=== PATIENT | male | born 2000 | race Hispanic/Latino ===

== ENCOUNTER 2019-08-28 10:39 | Emergency (ER) | payer OTHER, SELFPAY ==
--- NOTE | 2019-08-28 11:49 | ER ---
Nurse's Notes [facility] Name: Roman Cagle Age: 18 yrs Sex: Male : 2000 Arrival Date: 08/28/2019 Time: 10:45 Bed 6 Private MD: Diagnosis: Acute tonsillitis Presentation: 08/27 11:02 Chief complaint: Patient states: itchy throat and fever that began last night. Motrin ss last taken at 0300. Coronavirus screen: Surgical mask placed on patient. Patient moved to private room, placed in contact and droplet isolation with eye protection until further assessment. Patient denies a cough. Patient denies shortness of breath or difficulty breathing. Patient reports a measured and/or subjective temperature greater than 100.4F. Patient denies travel on a cruise ship or to a country the [facility] currently lists as an affected area. Patient denies contact with known and/or suspected case of COVID-19. Ebola Screen: Patient denies exposure to infectious person. Patient denies travel to an Ebola-affected area in the 21 days before illness onset. Initial Sepsis Screen: Does the patient meet any 2 criteria? No. Patient's initial sepsis screen is negative. Does the patient have a suspected source of infection?. Risk Assessment: Do you want to hurt yourself or someone else? Patient reports no desire to harm self or others. Onset of symptoms was August 27, 2019. 11:02 Method Of Arrival: Ambulatory 11:02 Acuity: PATIENCE 4 ss Historical: - Allergies: 11:05 No Known Allergies; ss - Home Meds: 11:05 None [Active]; ss - PMHx: 11:05 None; ss - PSHx: 11:05 None; ss - Immunization history:: Adult Immunizations up to date. - Social history:: Smoking status: Patient denies any tobacco usage or history of. Screenin:30 Abuse screen: Denies threats or abuse. Denies injuries from another. Nutritional ph screening: No deficits noted. Tuberculosis screening: No symptoms or risk factors identified. Fall Risk None identified. Assessment: 11:29 General: Appears in no apparent distress. comfortable, Behavior is calm, cooperative, ph appropriate for age, Reports fever for 12-24 hours. Pain: Complains of pain in throat. Neuro: Level of Consciousness is awake, alert, obeys commands, Oriented to person, place, time, situation. Cardiovascular: Capillary refill < 3 seconds in bilateral fingers. Respiratory: Airway is patent Respiratory effort is even, unlabored, Respiratory pattern is regular, symmetrical, Denies cough, shortness of breath. GI: No signs and/or symptoms were reported involving the gastrointestinal system. EENT: Throat is reddened Reports pain when swallowing. Derm: Skin is intact, is healthy with good turgor, Skin is pink, warm \T\ dry. Musculoskeletal: Circulation, motion, and sensation intact. Range of motion: intact in all extremities. Vital Signs: 11:02 BP 121 / 63; Pulse 86; Resp 15; Temp 99.3(O); Pulse Ox 98% on R/A; Weight 58.97 kg; ss Height 5 ft. 8 in. (172.72 cm); Pain 0/10; 12:30 BP 114 / 78; Pulse 81; Resp 18; Temp 98.7; Pulse Ox 99% on R/A; ph 11:02 Body Mass Index 19.77 (58.97 kg, 172.72 cm) ED Course: 10:45 Patient arrived in ED. fj1 10:51 Ramon Alba PA is PHCP. jr8 10:51 Hamilton Lei MD is Attending Physician. jr8 10:56 Kiana Markham RN is Primary Nurse. ph 11:04 Triage completed. 11:05 Arm band placed on right wrist. 11:30 Patient has correct armband on for positive identification. Bed in low position. Call ph light in reach. Side rails up X 1. Pulse ox on. NIBP on. Door closed. Noise minimized. Warm blanket given. 11:31 Strep swab sent to lab. 5 12:35 No provider procedures requiring assistance completed. Patient did not have IV access ph during this emergency room visit. Administered Medications: No medications were administered Outcome: 11:48 Discharge ordered by . mitul 12:35 Patient left the ED. ph 12:35 Discharged to home ambulatory. ph 12:35 Condition: good 12:35 Discharge instructions given to patient, Instructed on discharge instructions, follow up and referral plans. medication usage, Demonstrated understanding of instructions, follow-up care, medications, Prescriptions given X 2. Signatures: Cheli Corrigan RN RN Ramon Alba PA PA jr8 Kiana Markham, RN RN ph Gregory, Crystal 5 Candido Bhakta fj1
--- NOTE | 2019-08-28 11:49 | EDPHYS ---
Physician Documentation [facility] Name: Roman Cagle Age: 18 yrs Sex: Male : 2000 Arrival Date: 08/28/2019 Time: 10:45 Bed 6 Private MD: ED Physician Hamilton Lei HPI: 08/27 11:14 This 18 yrs old Male presents to ER via Ambulatory with complaints of Sore jr8 Throat, Cold Symptoms. 11:14 The patient presents with sore throat. The patient describes throat pain as raw. Onset: jr8 The symptoms/episode began/occurred acutely, yesterday. Severity of symptoms: At their worst the symptoms were mild, in the emergency department the symptoms are unchanged. Modifying factors: The symptoms are alleviated by nothing, the symptoms are aggravated by nothing. Associated signs and symptoms: Pertinent positives: fever. The patient has not experienced similar symptoms in the past. The patient has not recently seen a physician. Historical: - Allergies: 11:05 No Known Allergies; ss - Home Meds: 11:05 None [Active]; ss - PMHx: 11:05 None; ss - PSHx: 11:05 None; ss - Immunization history:: Adult Immunizations up to date. - Social history:: Smoking status: Patient denies any tobacco usage or history of. ROS: 11:14 Eyes: Negative for injury, pain, redness, and discharge, Neck: Negative for injury, jr8 pain, and swelling, Cardiovascular: Negative for chest pain, palpitations, and edema, Respiratory: Negative for shortness of breath, cough, wheezing, and pleuritic chest pain, Abdomen/GI: Negative for abdominal pain, nausea, vomiting, diarrhea, and constipation, Back: Negative for injury and pain, MS/Extremity: Negative for injury and deformity, Skin: Negative for injury, rash, and discoloration, Neuro: Negative for headache, weakness, numbness, tingling, and seizure. 11:14 Constitutional: Positive for fever. 11:14 ENT: Positive for sore throat. Exam: 11:14 Eyes: Pupils equal round and reactive to light, extra-ocular motions intact. Lids and jr8 lashes normal. Conjunctiva and sclera are non-icteric and not injected. Cornea within normal limits. Periorbital areas with no swelling, redness, or edema. Neck: Trachea midline, no thyromegaly or masses palpated, and no cervical lymphadenopathy. Supple, full range of motion without nuchal rigidity, or vertebral point tenderness. No Meningismus. Cardiovascular: Regular rate and rhythm with a normal S1 and S2. No gallops, murmurs, or rubs. Normal PMI, no JVD. No pulse deficits. Respiratory: Lungs have equal breath sounds bilaterally, clear to auscultation and percussion. No rales, rhonchi or wheezes noted. No increased work of breathing, no retractions or nasal flaring. Abdomen/GI: Soft, non-tender, with normal bowel sounds. No distension or tympany. No guarding or rebound. No evidence of tenderness throughout. Back: No spinal tenderness. No costovertebral tenderness. Full range of motion. Skin: Warm, dry with normal turgor. Normal color with no rashes, no lesions, and no evidence of cellulitis. MS/ Extremity: Pulses equal, no cyanosis. Neurovascular intact. Full, normal range of motion. Neuro: Awake and alert, GCS 15, oriented to person, place, time, and situation. Cranial nerves II-XII grossly intact. Motor strength 5/5 in all extremities. Sensory grossly intact. Cerebellar exam normal. Normal gait. 11:14 ENT: External ear(s): are unremarkable, Ear canal(s): are normal, clear, TM's: are normal, no evidence of bulging, no dullness, no erythema, no fluid levels, no hemotympanum, no rupture, normal bony landmarks, normal mobility, Nose: External nose: no obvious acute abnormality, Nasal septum: is midline, Nasal mucosa: moist, Turbinates: are normal, Mouth: Lips: moist, Oral mucosa: pink and intact, moist, Gums: pink, Tongue: is moist, Posterior pharynx: Airway: patent, Tonsils: bilaterally enlarged, with erythema, no exudate, no ulcerations, Uvula: midline, non-edematous, no erythema, swelling, is not appreciated, erythema, that is moderate, peritonsillar mass, is not appreciated, pooling of secretions, is not appreciated. Vital Signs: 11:02 BP 121 / 63; Pulse 86; Resp 15; Temp 99.3(O); Pulse Ox 98% on R/A; Weight 58.97 kg; ss Height 5 ft. 8 in. (172.72 cm); Pain 0/10; 12:30 BP 114 / 78; Pulse 81; Resp 18; Temp 98.7; Pulse Ox 99% on R/A; ph 11:02 Body Mass Index 19.77 (58.97 kg, 172.72 cm) ss MDM: 10:51 Patient medically screened. [facility] 11:47 Data reviewed: vital signs, nurses notes, lab test result(s), and as a result, I will [facility] discharge patient. Data interpreted: Pulse oximetry: on room air is 98 %. Interpretation: normal. Counseling: I had a detailed discussion with the patient and/or guardian regarding: the historical points, exam findings, and any diagnostic results supporting the discharge/admit diagnosis, lab results, the need for outpatient follow up, a family practitioner, to return to the emergency department if symptoms worsen or persist or if there are any questions or concerns that arise at home. 08/27 11:06 Order name: Strep 8 08/27 11:38 Order name: Group A Streptococcus Rapid Sc; Complete Time: 11:47 [facility] 08/27 11:47 Order name: Throat Culture [facility] 08/27 11:47 Order name: COVID-19 [facility] Administered Medications: No medications were administered Disposition: 13:14 Co-signature as Attending Physician, Hamilton Lei MD. rn Disposition: 08/28/19 11:48 Discharged to Home. Impression: Acute tonsillitis. - Condition is Stable. - Discharge Instructions: Tonsillitis. - Prescriptions for Tessalon Perles 100 mg Oral Capsule - take 1 capsule by ORAL route every 8 hours As needed; 15 capsule. Augmentin 875- 125 mg Oral Tablet - take 1 tablet by ORAL route every 12 hours for 10 days; 20 tablet. - Medication Reconciliation Form, Thank You Letter, Antibiotic Education, Prescription Opioid Use form. - Follow up: Private Physician; When: As needed; Reason: Recheck today's complaints, Continuance of care, Re-evaluation by your physician. - Problem is new. - Symptoms have improved. Signatures: Dispatcher [employer] [facility] Hamilton Lei MD MD rn Smirch, Shelby, RN RN Ramon Koo PA PA jr8 Kiana Markham RN RN ph Corrections: (The following items were deleted from the chart) 12:35 11:48 08/28/2019 11:48 Discharged to Home. Impression: Acute tonsillitis. Condition is ph Stable. Forms are Medication Reconciliation Form, Thank You Letter, Antibiotic Education, Prescription Opioid Use. Follow up: Private Physician; When: As needed; Reason: Recheck today's complaints, Continuance of care, Re-evaluation by your physician. Problem is new. Symptoms have improved. jr8
[2019-08-28 17:39] VITALS: BP 121/63; TEMP 99.3; O2SAT 98
== END 2019-08-28 12:35 | disposition home or self-care (01) ==
LOC: ER 10:39
DX: U07.1 COVID-19 (principal); J03.90 Acute tonsillitis, unspecified
CPT/HCPCS: 87070; 87081; 99283; U0001